=== PATIENT | female | born 1960 | race Caucasian/White ===

== ENCOUNTER 2025-01-24 14:30 | Outpatient (CLI) | payer MEDICAID ==
--- NOTE | 2025-01-24 15:55 | RADIOLOGY REPORT ---
CLINICAL INFORMATION: 64 years old, Female; PAIN IN RIGHT SHOULDER. TECHNIQUE: Axial CT images of the right shoulder were obtained without IV contrast. Coronal and sagit mart reformatted images were obtained, reviewed, and stored. All CT scans at this medical facility ar e performed using dose modulation techniques as appropriate to a performed exam including the followi ng: Automated exposure control was utilized; adjustment of the MA and/or KV according to patient size ; and use of iterative reconstruction technique. 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 There is associated beam h ardening artifact from the prosthesis, limiting evaluation of adjacent structures. No CT evidence for acute prosthesis complication. No acute fracture visualized. Mild arthritic changes of the acromiocl avicular joint. No significant joint effusion visualized. No soft tissue fluid collection identified adjacent to the glenohumeral joint or elsewhere in the right shoulder region. Visualized portions of the right lung demonstrate no suspicious or acute abnormality. IMPRESSION: 1. 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 No CT findings are seen to suggest acu te prosthesis complication. No evidence of acute fracture. 2. Additional nonacute findings as described above.
== END 2025-01-24 23:59 | disposition home or self-care (01) ==
LOC: RAD 14:30
PROVIDERS: ATTEND Nurse Practitioner
DX: M25.511 Pain in right shoulder (principal); Z98.890 Other specified postprocedural states
CPT/HCPCS: 73200